=== PATIENT | male | born 1980 | race Caucasian/White ===

== ENCOUNTER 2016-07-18 23:13 | Emergency (ER) | payer SELFPAY ==
[2016-07-18 23:32] VITALS: BP 132/89; PULSE 96; TEMP 98.4; BMI 22.8
--- NOTE | 2016-07-19 00:06 | PDOC ---
History of Present Illness - General History Source: Patient Exam Limitations: No Limitations - History of Present Illness Initial Comments: 07/19/16 01:17 The patient is a 35 year old male with no significant past medical history, who presents to the ER with persistent suprapubic pain and burning on urination since yesterday evening. Patient rates the pain at 6/10. He states he has difficulty urinating secondary to pain. Patient believes he has had one episode of burgundy colored urine. Denies discharge Denies recent sexual activity Denies history of UTI Denies chest pain or shortness of breath Denies fever, chills Family Hx: Brother had renal calculi Allergies: NKDA <Patrica Vázquez - Last Filed: 07/19/16 01:51> - General History Source: Patient <Russell Garcia - Last Filed: 07/19/16 03:50> - General Chief Complaint: Urinary Problem Stated Complaint: URINARY PROBLEM Time Seen by Provider: 07/18/16 23:53 Past History <Patrica Vázquez - Last Filed: 07/19/16 01:51> - Past Medical History Anemia: No Asthma: No Cancer: No Cardiac Disorders: No CVA: No COPD: No CHF: No Dementia: No Diabetes: No GI Disorders: No Disorders: No HTN: No Hypercholesterolemia: No Kidney Stones: No Liver Disease: No Suicide Attempt (Hx): No Seizures: No Thyroid Disease: No - Surgical History Abdominal Surgery: No Appendectomy: No Cardiac Surgery: No Cholecystectomy: No Lung Surgery: No Neurologic Surgery: No Orthopedic Surgery: No - Reproductive History Testicular Surgery: No - Psycho/Social/Smoking Cessation Hx Anxiety: No Suicidal Ideation: No Smoking Status: No Smoking History: Never smoked Have you smoked in the past 12 months: No Number of Cigarettes Smoked Daily: 10 Information on smoking cessation initiated: No 'Breaking Loose' booklet given: 01/09/12 Hx Alcohol Use: No Drug/Substance Use Hx: No Substance Use Type: Heroin Hx Substance Use Treatment: No <Russell Garcia - Last Filed: 07/19/16 03:50> - Past Medical History Allergies/Adverse Reactions: Allergies Allergy/AdvReac Type Severity Reaction Status Date / Time No Known Allergies Allergy Verified 07/19/16 00:16 Home Medications: Ambulatory Orders Quetiapine Fumarate [Seroquel -] 100 mg PO HS #0 tablet 11/29/12 Ibuprofen 800 mg PO TID #30 tablet 07/19/16 Levofloxacin [Levaquin -] 500 mg PO DAILY #7 tablet 07/19/16 Review of Systems - Review of Systems Comments:: 07/19/16 01:18 CONSTITUTIONAL: Absent: fever, no chills, no fatigue EYES: Absent: visual changes ENT: Absent: ear pain, no sore throat CARDIOVASCULAR: Absent: chest pain, no palpitations RESPIRATORY: Absent: cough, no SOB GI: Present: suprapubic pain Absent: no nausea, no vomiting, no constipation, no diarrhea GENITOURINARY: Present: dysuria and hematuria Absent: no frequency MUSCULOSKELETAL: Absent:back pain, no arthralgia, no myalgia SKIN: Absent: rash NEURO: Absent: headache <Uts,Patrica - Last Filed: 07/19/16 01:51> *Physical Exam - Vital Signs Last Vital Signs Temp Pulse Resp BP Pulse Ox 98.4 F 96 H 18 132/89 96 07/18/16 23:29 07/18/16 23:29 07/18/16 23:29 07/18/16 23:29 07/18/16 23:29 - Physical Exam Comments: 07/19/16 01:22 GENERAL: Well-appearing, well-nourished. No apparent distress. HEENT: Normocephalic, atraumatic. PERRL, EOM intact. CARDIOVASCULAR: Normal S1, S2. Regular rate and rhythm. PULMONARY: Clear to auscultation bilaterally. ABDOMEN: Soft, non-distended, non-tender. BACK: Mild right lower flank tenderness. EXTREMITIES: Normal ROM in all four extremities. No gross deformities. SKIN: Warm, dry. No rash NEUROLOGICAL: No focal neurological deficits. <Uts,Patrica - Last Filed: 07/19/16 01:51> - Vital Signs Last Vital Signs Temp Pulse Resp BP Pulse Ox 98.4 F 96 H 18 132/89 96 07/18/16 23:29 07/18/16 23:29 07/18/16 23:29 07/18/16 23:29 07/18/16 23:29 <Russell Garcia - Last Filed: 07/19/16 03:50> ED Treatment Course - RADIOLOGY Radiograph Interpretation: 07/19/16 01:[address] impression reported by Dr Pankaj Arzola: 5 mm right UVJ stone with distal hydroureter but no central hydronephrosis. Possible 2.3 cm mass adjacent to the left the latter is nonspecific and if stable, a desmoid tumor is considered which may be followup with MRI. <Patrica Vázquez - Last Filed: 07/19/16 01:51> - LABORATORY CBC & Chemistry Diagram: 07/19/16 02:00 07/19/16 02:00 <Russell Garcia - Last Filed: 07/19/16 03:50> Medical Decision Making - Medical Decision Making 07/19/16 03:50 Dr. Garcia: The scribe's documentation has been prepared under my direction and personally reviewed by me in its entirery. I confirm that the note above accurately reflects all work, treatment, procedures, and medical decision making performed by me. <Russell Garcia - Last Filed: 07/19/16 03:50> *DC/Admit/Observation/Transfer - Attestations Scribe Attestion: 07/19/16 01:22 Documentation prepared by Patrica Vázquez, acting as medical dermatologist for Russell Garcia DO. <Patrica Vázquez - Last Filed: 07/19/16 01:51> - Discharge Dispostion Admit: No <Russell Garcia - Last Filed: 07/19/16 03:50> Diagnosis at time of Disposition: Kidney calculus - Discharge Dispostion Disposition: HOME Condition at time of disposition: Stable - Referrals Referrals: Luis Hare MD [Staff Physician] - Luc Gong MD., MD [Staff Physician] - - Patient Instructions Printed Discharge Instructions: DI for Kidney Stones
[2016-07-19] MEDS ORDERED: IBUPROFEN 400 MG TABLET (FP) PO ONE ×2 (00:08→00:25)
[2016-07-19 02:15] LABS: BASOPHIL 0.4 % (0-2.0); EOSINOPHIL 0.1 % (0-4.5); MCH 28.4 pg (25.7-33.7); MCHC 32.2 g/dl (32.0-35.9); MEAN CELL VOLUME 88.1 fl (80-96); MEAN PLT VOLUME 8.5 fl (7.5-11.1); NEUTROPHILS 71.4 % (42.8-82.8); PLATELET COUNT 275 K/MM3 (134-434); RDW 13.5 % (11.9-15.9); WHITE BLOOD COUNT 11.8 K/mm3 (4.0-10.0)
[2016-07-19] MEDS ORDERED: ONDANSETRON 4 MG/2 ML VIAL IVPUSH STA (02:50)
[2016-07-19] MEDS ORDERED: ONDANSETRON 4 MG/2 ML VIAL ONE (02:50)
[2016-07-19] MEDS ORDERED: morphine CARPU-JECT 2 MG/1 ML DISP.SYRIN IVPUSH ONE (02:50)
[2016-07-19] MEDS ORDERED: morphine CARPU-JECT 4 MG/1 ML DISP.SYRIN ONE (02:50)
[2016-07-19 03:01] LABS: INR 1.11 (0.82-1.09); PROTHROMBIN TIME (PATIENT) 12.2 SEC (9.98-11.88)
[2016-07-19 03:06] LABS: URINE APPEARANCE CLEAR; URINE BILIRUBIN NEGATIVE (NEGATIVE); URINE COLOR LTYELLOW; URINE GLUCOSE (UA) NEGATIVE (NEGATIVE); URINE KETONE NEGATIVE (NEGATIVE); URINE NITRITE NEGATIVE (NEGATIVE); URINE PROTEIN NEGATIVE (NEGATIVE); URINE UROBILINOGEN NEGATIVE E.U./dl (0.2-1.0)
[2016-07-19 03:10] LABS: ANION GAP 11 (8-16); BILIRUBIN,TOTAL 0.3 mg/dL (0.2-1.0); CALCIUM 8.9 mg/dL (8.5-10.1); CO2 27 mmol/L (21-32); COCKROFT - GAULT 97.33; GLUCOSE,RANDOM 126 mg/dL (74-106); SGOT/AST 17 U/L (15-37); SGPT/ALT 18 U/L (12-78); TOT PROT 7.2 g/dl (6.4-8.2)
[2016-07-19 03:11] LABS: ALK PHOS 84 U/L (45-117)
[2016-07-19 03:11] LABS: URINE BLOOD 2+ (NEGATIVE); URINE LEUK ESTERASE TRACE (NEGATIVE)
[2016-07-19 03:12] LABS: URINE BACTERIA FEW /hpf (NONE SEEN); URINE MUCUS FEW; URINE RBC 33 /hpf (0-3); URINE WBC 25 /hpf (3-5)
[2016-07-19] MEDS ORDERED: CEFTRIAXONE 50 ML ONE (03:50)
== END 2016-07-19 04:14 | disposition home or self-care (01) ==
LOC: JER 23:13
PROC: 3E033NZ Introduction of Analgesics, Hypnotics, Sedatives into Peripheral Vein, Percutaneous Approach (ICD-10-PCS; principal; 2016-07-18)
PROC: 3E03329 Introduction of Other Anti-infective into Peripheral Vein, Percutaneous Approach (ICD-10-PCS; 2016-07-18)
PROC: 3E033GC Introduction of Other Therapeutic Substance into Peripheral Vein, Percutaneous Approach (ICD-10-PCS; 2016-07-18)
DX: N23 Unspecified renal colic (principal); Z87.891 Personal history of nicotine dependence
CPT/HCPCS: 36415; 74176; 80053; 81003; 81015; 85025; 85610; 87086; 99283-25

== ENCOUNTER 2018-04-04 20:56 | Emergency (ER) | payer SELFPAY ==
[2018-04-04 21:01] VITALS: BP 121/72
[2018-04-04 21:03] VITALS: BMI 19.8
== END 2018-04-04 21:04 | disposition left against medical advice (07) ==
LOC: JERFT 20:56
CPT/HCPCS: 99281-25

== ENCOUNTER 2023-08-02 20:07 | Emergency (ER) | payer SELFPAY ==
[2023-08-02 20:14] VITALS: BMI 23.6
[2023-08-02 22:46] LABS: COCAINE, UR NEGATIVE (NEGATIVE); URINE AMPHETAMINES NEGATIVE (NEGATIVE)
[2023-08-02 22:47] LABS: METHADONE, UR POSITIVE (NEGATIVE); OPIATES, URI NEGATIVE (NEGATIVE); PHENCYCLIDINE,URINE NEGATIVE (NEGATIVE); URINE BARBITURATES NEGATIVE (NEGATIVE); URINE BENZODIAZEPINES POSITIVE (NEGATIVE)
[2023-08-02] MEDS ORDERED: IBUPROFEN 600 MG TABLET (FP) PO ONE (23:25)
[2023-08-02 23:27] VITALS: BP 148/94; PULSE 84; RESP 20; TEMP 98.9
[2023-08-02] MEDS: IBUPROFEN 600 MG TABLET (FP) PO ONE (23:30)
== END 2023-08-02 23:33 | disposition home or self-care (01) ==
LOC: JER 20:07
DX: T40.1X4A Poisoning by heroin, undetermined, initial encounter (principal); R55 Syncope and collapse
CPT/HCPCS: 71045-TC-FY; 80307; 93005; 93010; 99285-25

== ENCOUNTER 2023-08-05 23:06 | Emergency (ER) | payer OTHER ==
[2023-08-05] MEDS ORDERED: HALOPERIDOL LACTATE 5 MG/ML ONE (23:13)
[2023-08-05] MEDS ORDERED: MIDAZOLAM HCL 5 MG/1 ML Single Dose Vial ONE (23:14)
[2023-08-05 23:17] VITALS: BP 125/98; PULSE 67; RESP 18; TEMP 98.2; BMI 22.0
[2023-08-05] MEDS: MIDAZOLAM HCL 5 MG/1 ML Single Dose Vial IM ONE ×2 (23:24)
[2023-08-05] MEDS: HALOPERIDOL LACTATE 5 MG/ML IM ONE (23:24)
[2023-08-05 23:48] LABS: PHENCYCLIDINE,URINE NEGATIVE (NEGATIVE); URINE BARBITURATES NEGATIVE (NEGATIVE)
[2023-08-05 23:49] LABS: COCAINE, UR NEGATIVE (NEGATIVE); OPIATES, URI NEGATIVE (NEGATIVE)
[2023-08-06] LABS: METHADONE, UR POSITIVE (NEGATIVE); URINE AMPHETAMINES NEGATIVE (NEGATIVE); URINE BENZODIAZEPINES POSITIVE (NEGATIVE)
== END 2023-08-06 01:48 | disposition home or self-care (01) ==
LOC: JER 23:06
PROC: 3E023GC Introduction of Other Therapeutic Substance into Muscle, Percutaneous Approach (ICD-10-PCS; principal; 2023-08-05)
PROC: 3E023GC Introduction of Other Therapeutic Substance into Muscle, Percutaneous Approach (ICD-10-PCS; 2023-08-05)
DX: R45.1 Restlessness and agitation (principal); F19.10 Other psychoactive substance abuse, uncomplicated
CPT/HCPCS: 80307; 99284-25

== ENCOUNTER 2023-08-06 18:50 | Inpatient (IN) | payer OTHER ==
[2023-08-06 19:11] VITALS: BMI 22.8
[2023-08-06] MEDS ORDERED: HALOPERIDOL LACTATE 5 MG/ML ONE (19:39)
[2023-08-06] MEDS ORDERED: MIDAZOLAM HCL 5 MG/1 ML Single Dose Vial ONE ×3 (19:40→23:51)
[2023-08-06] MEDS: MIDAZOLAM HCL 5 MG/1 ML Single Dose Vial IM ONE (19:47)
[2023-08-06] MEDS: HALOPERIDOL LACTATE 5 MG/ML IM ONE (19:47)
[2023-08-06 20:38] LABS: HEMATOCRIT 44.8 % (35.4-49); MCHC 33.5 g/dl (32.0-35.9); MEAN CELL VOLUME 86.7 fl (80-96); MEAN PLT VOLUME 8.3 fl (7.5-11.1); PLATELET COUNT 491 10^3/uL (134-434); RBC 5.16 M/mm3 (4.00-5.60); RDW 14.9 % (11.9-15.9); WHITE BLOOD COUNT 11.5 K/mm3 (4.0-10.0)
[2023-08-06 21:03] LABS: CHLORIDE 103 mmol/L (98-107); POTASSIUM 4.5 mmol/L (3.5-5.1); SODIUM 136 mmol/L (136-145)
[2023-08-06 21:05] LABS: CALCIUM 10.3 mg/dL (8.5-10.1)
[2023-08-06 21:07] LABS: ALBUMIN 4.1 g/dl (3.4-5.0); ANION GAP 11 mmol/L (4-13); CO2 22 mmol/L (21-32); GLUCOSE,RANDOM 182 mg/dL (74-106)
[2023-08-06 21:10] LABS: CREATININE 1.6 mg/dL (0.55-1.3); SGOT/AST 75 U/L (15-37); SGPT/ALT 32 U/L (13-61)
[2023-08-06 21:11] LABS: BILIRUBIN,TOTAL 0.4 mg/dL (0.2-1); TOT PROT 8.3 g/dl (6.4-8.2)
[2023-08-06 21:12] LABS: ALK PHOS 136 U/L (45-117)
[2023-08-06] MEDS ORDERED: BUPRENORPHINE/NALOXONE 8 MG/2 MG FILM PACKET ONE (22:03)
[2023-08-06] MEDS: BUPRENORPHINE/NALOXONE 8 MG/2 MG FILM PACKET SL ONE (22:07)
[2023-08-06 22:49] LABS: COCAINE, UR NEGATIVE (NEGATIVE); OPIATES, URI NEGATIVE (NEGATIVE); URINE AMPHETAMINES NEGATIVE (NEGATIVE); URINE BARBITURATES NEGATIVE (NEGATIVE)
[2023-08-06 22:50] LABS: PHENCYCLIDINE,URINE NEGATIVE (NEGATIVE)
[2023-08-06 22:51] LABS: METHADONE, UR POSITIVE (NEGATIVE); URINE BENZODIAZEPINES POSITIVE (NEGATIVE)
[2023-08-06] MEDS: MIDAZOLAM HCL 5 MG/1 ML Single Dose Vial IVPUSH ONE ×2 (23:40→23:55)
[2023-08-06] MEDS ORDERED: cloNIDine HCL 0.1 MG TABLET ONE (23:43)
[2023-08-06] MEDS ORDERED: hydrOXYzine PAMOATE 25 MG CAPSULE (FP) PO ONE (23:44)
[2023-08-06] MEDS: hydrOXYzine PAMOATE 25 MG CAPSULE (FP) PO ONE (23:47)
[2023-08-06] MEDS: cloNIDine HCL 0.1 MG TABLET PO ONE (23:47)
[2023-08-07] MEDS ORDERED: DICYCLOMINE HCL 10 MG CAPSULE PO PRN (00:25)
[2023-08-07] MEDS ORDERED: ONDANSETRON 4 MG/2 ML VIAL IVPUSH PRN (00:25)
[2023-08-07] MEDS ORDERED: ACETAMINOPHEN 1000 MG/100 ML BAG IVPB PRN (00:26)
[2023-08-07] MEDS ORDERED: cloNIDine HCL 0.1 MG TABLET PO PRN (00:56)
[2023-08-07] MEDS: LACTATED RINGERS SOLUTION 1,000 ML/1,000 ML INFUS.BAG IV SCH (01:03)
[2023-08-07] MEDS: methaDONE HCL 10 MG TABLET PO ONE (02:15)
[2023-08-07 07:20] LABS: HEMOGLOBIN 13.4 GM/dL (11.7-16.9); MCH 29.3 pg (25.7-33.7); MCHC 33.5 g/dl (32.0-35.9); MEAN CELL VOLUME 87.5 fl (80-96); MEAN PLT VOLUME 8.3 fl (7.5-11.1); PLATELET COUNT 401 10^3/uL (134-434); RBC 4.57 M/mm3 (4.00-5.60); RDW 14.7 % (11.9-15.9); WHITE BLOOD COUNT 10.9 K/mm3 (4.0-10.0)
[2023-08-07 07:43] LABS: POTASSIUM 4.3 mmol/L (3.5-5.1)
[2023-08-07 07:50] LABS: ALBUMIN 3.7 g/dl (3.4-5.0); BLOOD UREA NITROGEN 7.7 mg/dL (7-18); CALCIUM 9.4 mg/dL (8.5-10.1)
[2023-08-07 07:53] LABS: MAGNESIUM 2.4 mg/dL (1.8-2.4)
[2023-08-07 07:54] LABS: CREATININE 0.9 mg/dL (0.55-1.3); TOT PROT 7.2 g/dl (6.4-8.2)
[2023-08-07 07:56] LABS: BILIRUBIN,TOTAL 0.6 mg/dL (0.2-1)
[2023-08-07] MEDS ORDERED: ENOXAPARIN NA (PORCINE) 40 MG/0.4 ML DISP.SYRIN SQ ONE (09:25)
[2023-08-07] MEDS: ENOXAPARIN NA (PORCINE) 40 MG/0.4 ML DISP.SYRIN SQ SCH (09:31)
[2023-08-07] MEDS: cloNIDine HCL 0.1 MG TABLET PO PRN (22:40)
[2023-08-08 07:36] LABS: POTASSIUM 3.9 mmol/L (3.5-5.1)
[2023-08-08 07:44] LABS: BASO % 0.9 % (0-2.0); BLOOD UREA NITROGEN 5.4 mg/dL (7-18); CALCIUM 9.1 mg/dL (8.5-10.1); EOS % 0.6 % (0-4.5); HEMATOCRIT 37.9 % (35.4-49); HEMOGLOBIN 12.4 GM/dL (11.7-16.9); MCH 28.8 pg (25.7-33.7); MCHC 32.8 g/dl (32.0-35.9); MEAN CELL VOLUME 87.7 fl (80-96); MEAN PLT VOLUME 8.6 fl (7.5-11.1); MONO % 10.9 % (3.8-10.2); NEUT % 54.6 % (42.8-82.8); PLATELET COUNT 341 10^3/uL (134-434); RBC 4.33 M/mm3 (4.00-5.60); RDW 14.8 % (11.9-15.9)
[2023-08-08 07:48] LABS: CREATININE 0.8 mg/dL (0.55-1.3)
[2023-08-09] MEDS: methaDONE HCL 10 MG TABLET PO ONE (09:28)
[2023-08-10 05:44] VITALS: RESP 18
[2023-08-10] MEDS: LORazepam 2 MG/ML SDV VIAL IVPUSH PRN (15:02)
[2023-08-10] MEDS: cloNIDine HCL 0.1 MG TABLET PO SCH (17:16)
[2023-08-10] MEDS ORDERED: MELATONIN 5 MG TABLETS PO PRN (22:17)
[2023-08-10] MEDS: MELATONIN 5 MG TABLETS PO ONE (22:26)
[2023-08-11] MEDS: methaDONE HCL 10 MG TABLET PO ONE (11:43)
[2023-08-11] MEDS: THIAMINE 100 MG TABLET PO SCH (21:36)
[2023-08-12 07:59] LABS: BASO % 0.6 % (0-2.0); EOS % 1.7 % (0-4.5); HEMOGLOBIN 13.3 GM/dL (11.7-16.9); LYMPH % 38.8 % (8-40); MCH 29.1 pg (25.7-33.7); MCHC 33.1 g/dl (32.0-35.9); MEAN CELL VOLUME 87.7 fl (80-96); MEAN PLT VOLUME 8.9 fl (7.5-11.1); MONO % 11.6 % (3.8-10.2); NEUT % 47.3 % (42.8-82.8); PLATELET COUNT 285 10^3/uL (134-434); RBC 4.56 M/mm3 (4.00-5.60); RDW 14.4 % (11.9-15.9); WHITE BLOOD COUNT 6.2 K/mm3 (4.0-10.0)
[2023-08-12 08:28] LABS: BLOOD UREA NITROGEN 11.1 mg/dL (7-18); CALCIUM 8.9 mg/dL (8.5-10.1); MAGNESIUM 2.3 mg/dL (1.8-2.4)
[2023-08-12 08:29] LABS: ALBUMIN 3.2 g/dl (3.4-5.0)
[2023-08-12 08:31] LABS: CREATININE 0.7 mg/dL (0.55-1.3); TOT PROT 6.5 g/dl (6.4-8.2)
[2023-08-12 08:33] LABS: BILIRUBIN,TOTAL 0.4 mg/dL (0.2-1)
[2023-08-12] MEDS ORDERED: LORazepam 1 MG TABLET PO PRN (08:34)
[2023-08-12] MEDS: MULTIVITAMINS (DAILY MVI) TABLET (FP) PO SCH (10:42)
[2023-08-12] MEDS: FOLIC ACID 1 MG TABLET (FP) PO SCH (10:42)
[2023-08-12] MEDS ORDERED: INSULIN (NOVOLOG) ASPART 100 UNITS/ML 10ML VIAL SQ ONE (11:56)
[2023-08-12] MEDS: methaDONE HCL 10 MG TABLET PO ONE (12:27)
[2023-08-13] MEDS: methaDONE HCL 10 MG TABLET PO ONE (05:49)
[2023-08-13 08:15] LABS: BASO % 0.4 % (0-2.0); EOS % 1.8 % (0-4.5); HEMATOCRIT 38.3 % (35.4-49); HEMOGLOBIN 12.9 GM/dL (11.7-16.9); LYMPH % 32.8 % (8-40); MCH 29.5 pg (25.7-33.7); MCHC 33.8 g/dl (32.0-35.9); MEAN CELL VOLUME 87.5 fl (80-96); MEAN PLT VOLUME 8.9 fl (7.5-11.1); MONO % 9.9 % (3.8-10.2); NEUT % 55.1 % (42.8-82.8); PLATELET COUNT 290 10^3/uL (134-434); RBC 4.38 M/mm3 (4.00-5.60); RDW 14.5 % (11.9-15.9); WHITE BLOOD COUNT 6.6 K/mm3 (4.0-10.0)
[2023-08-13 08:31] LABS: ALBUMIN 3.2 g/dl (3.4-5.0); BLOOD UREA NITROGEN 9.3 mg/dL (7-18); CALCIUM 8.6 mg/dL (8.5-10.1); MAGNESIUM 2.4 mg/dL (1.8-2.4)
[2023-08-13 08:35] LABS: CREATININE 0.8 mg/dL (0.55-1.3)
[2023-08-13 08:36] LABS: BILIRUBIN,TOTAL 0.3 mg/dL (0.2-1); TOT PROT 6.4 g/dl (6.4-8.2)
[2023-08-13 09:19] VITALS: BP 106/66; PULSE 73; TEMP 97.8
== END 2023-08-13 09:29 | disposition home or self-care (01) | DRG 773 ==
LOC: JER 18:50 → JERBED 22:23 → UNDOADMOB 22:23 → J7W 08-07 14:42 → OBSVTOIN 08-08 14:37 → J8W 08-08 18:48
PROVIDERS: ADMIT Internal Medicine; ATTEND Nurse Practitioner Family
DX: F11.23 Opioid dependence with withdrawal (principal); D72.829 Elevated white blood cell count, unspecified; F39 Unspecified mood [affective] disorder; E44.0 Moderate protein-calorie malnutrition; Z68.22 Body mass index [BMI] 22.0-22.9, adult
CPT/HCPCS: 36415; 80048; 80053; 80307; 83735; 84100; 85025; 85027; 93005; 93010; 99285-25; G0378